=== PATIENT | female | born 1965 | race Two or more races ===

== ENCOUNTER 2020-07-02 21:55 | Emergency (ER) | payer MEDICAID ==
[~2020-07-02] VITALS: Ht 165.1 cm; Wt 98.1 kg
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
--- NOTE | 2020-07-02 22:35 | NUR ---
ER PROVIDER AT BEDSIDE FOR EVALUATION.
[2020-07-02] MEDS ORDERED: LIDOCAINE-MPF 1%, 5ML ONE (22:44)
[2020-07-02] MEDS ORDERED: DIPH,PERTUSS(ACELL),TET VAC/PF 0.5 ML IM-VACC ONE ×2 (22:45→23:00)
[2020-07-02 23:00] LABS: BASOPHILS % (AUTO) 1 % (0-1); EOSINOPHILS % (AUTO) 3 % (1-7); LYMPHOCYTES % (AUTO) 30 % (22-44); MEAN CORPUSCULAR HEMOGLOBIN 27.4 pg (27.0-34.8); MEAN CORPUSCULAR HGB CONC 32.4 g/dL (32.4-35.8); MEAN PLATELET VOLUME 7.5 fL (7.4-10.4); MONOCYTES % (AUTO) 7 % (2-9); NEUTROPHILS % (AUTO) 59 % (42-75); PLATELET COUNT 277 x10^3/uL (130-400); RED BLOOD COUNT 4.89 x10^6/uL (3.82-5.3); RED CELL DISTRIBUTION WIDTH 15.6 % (9.6-15.2)
[2020-07-02] MEDS ORDERED: LIDOCAINE-MPF 1%, 5ML INFIL ONE (23:00)
[2020-07-02 23:03] LABS: MD NO
[2020-07-02 23:13] LABS: ALANINE AMINOTRANSFERASE 30 U/L (12-78); ALBUMIN 3.7 g/dL (3.4-5.0); ANION GAP 6 mmol/L (5-15); CALCIUM 8.7 mg/dL (8.5-10.1); CHLORIDE 100 mmol/L (98-107); CREATININE 1.52 mg/dL (0.55-1.02)
[2020-07-02 23:15] LABS: ALKALINE PHOSPHATASE 72 U/L (45-117); BILIRUBIN,TOTAL 0.4 mg/dL (0.2-1.0); TOTAL PROTEIN 7.9 g/dL (6.4-8.2)
[2020-07-02] MEDS ORDERED: BACITRACIN ZINC OINT 500U/GM, 0.9 GM ONE (23:56)
[2020-07-02] MEDS ORDERED: POTASSIUM CHLORIDE 20 MEQ TAB.ER.PRT ONE (23:56)
--- NOTE | 2020-07-02 23:57 | NUR ---
received report from TERESA Allen.
[2020-07-02 23:58] VITALS: BP 132/83
[2020-07-03] MEDS ORDERED: POTASSIUM CHLORIDE 20 MEQ TAB.ER.PRT PO ONE
--- NOTE | 2020-07-03 00:02 | NUR ---
PATIENT MEDICATED PER eMAR, BACITRACIN APPLIED. REPORT GIVEN TO TERESA ESPINOZA FOR TRANSFER OF PATIENT CARE.
[2020-07-03] MEDS ORDERED: ACETAMINOPHEN 325 MG TABLET ONE (00:10)
--- NOTE | 2020-07-03 00:22 | NUR ---
tylenol given. patient discharged with instruction. verbalized understanding.
[2020-07-03] MEDS ORDERED: ACETAMINOPHEN 325 MG TABLET PO ONE (00:30)
== END 2020-07-03 00:24 | disposition home or self-care (01) ==
LOC: ED 23:24
DX: S01.112A Laceration without foreign body of left eyelid and periocular area, initial encounter (principal); S06.9X1A Unspecified intracranial injury with loss of consciousness of 30 minutes or less, initial encounter; N28.9 Disorder of kidney and ureter, unspecified; R55 Syncope and collapse; I10 Essential (primary) hypertension; X58.XXXA Exposure to other specified factors, initial encounter; Y93.89 Activity, other specified; Y92.488 Other paved roadways as the place of occurrence of the external cause; Y99.8 Other external cause status
CPT/HCPCS: 12051; 36415; 80053; 85025; 90471; 90715; 93005; 99284